=== PATIENT | male | born 1960 | race Two or more races ===

== ENCOUNTER 2018-08-11 14:33 | Outpatient (CLI) | payer OTHER ==
[~2018-08-11 14:33] MED LIST: ADVAIR 5001 DISK W/1 IH; ATORVASTATIN CA40 MG PO; CLONAZEPAM2 MG PO; GEMFIBROZIL600 MG PO; GLIPIZIDE10 MG PO; INVOKANA100 MG PO; METFORMIN HYDR100 GM; PROVENTIL HFA6.7 GM IH; RESTORIL30 M1 PO; SINGULAIR10 MG PO; ZOLOFT100 MG PO
== END 2018-08-11 14:44 | disposition home or self-care (01) ==
LOC: RAD 501 14:33
DX: M25.521 Pain in right elbow (principal); M79.642 Pain in left hand

== ENCOUNTER → 2019-03-05 | Outpatient (CLI) | payer OTHER | END | disposition home or self-care (01) | LOC: NUCLEAR 09:41 | DX: I20.1 Angina pectoris with documented spasm (principal) ==